=== PATIENT | male | born 1975 | race Caucasian/White ===

== ENCOUNTER 2023-05-21 09:14 | Day surgery (SDC) | payer OTHER, SELFPAY ==
--- NOTE | 2023-05-19 13:36 | HO.ANESPROP2 ---
Documented by User: Venice Mejia NP 05/19/23 13:41 HPI - Anesthesia Eval Consult details Narrative: 47yo M for Colonoscopy [facility] Past Medical History Medical History (Updated 05/21/23 @ 09:59 by Madisyn Herr RN) Acute Crohn's disease Anxiety B12 deficiency Back pain Crohn's disease GERD (gastroesophageal reflux disease) Hx of atrial fibrillation without current medication Hx of deep venous thrombosis LUCIANA (iron deficiency anemia) Insomnia Low testosterone Vitamin D deficiency Surgical History Surgical History (Updated 05/21/23 @ 10:00 by Madisyn Herr RN) History of bowel resection (~2019) History of incisional hernia repair (~2020) Hx of appendectomy (~2004) Hx of colonoscopy (~2019) Hx of knee surgery (~2010) Social History Social History Patient Tobacco Use Status: Never used Tobacco Use of substances other than those prescribed or required for medical reasons: No Advance Directives: No Advance Directives Information Provided: Yes Meds Allergies Allergy/AdvReac Type Severity Reaction Status Date / Time No Known Allergies Allergy Verified 05/19/23 13:39 Home Medications Medication Instructions Recorded Confirmed Last Taken Type cyanocobalamin (vitamin B-12) 1,000 mcg IM QMONTH 05/20/23 Unknown History 1,000 mcg/mL injection solution lorazepam 0.5 mg tablet 0.5 mg PO BID PRN anxiety 05/20/23 Unknown History testosterone 05/20/23 05/20/23 Unknown History tizanidine 4 mg tablet 4 mg PO TID 05/20/23 05/20/23 Unknown History Exam Exam Date and Time: May 19, 2023 1336 Assessment and Plan Assessment Anesthesia Assessment: Chart Reviewed Documented by User: Cassi Schuster MD 05/21/23 10:03 [facility] Past Medical History Medical History (Updated 05/21/23 @ 09:59 by Madisyn Herr RN) Acute Crohn's disease Anxiety B12 deficiency Back pain Crohn's disease GERD (gastroesophageal reflux disease) Hx of atrial fibrillation without current medication Hx of deep venous thrombosis LUCIANA (iron deficiency anemia) Insomnia Low testosterone Vitamin D deficiency Family History Family history of problems with anesthesia: No Surgical History Surgical History (Updated 05/21/23 @ 10:00 by Madisyn Herr RN) History of bowel resection (~2019) History of incisional hernia repair (~2020) Hx of appendectomy (~2004) Hx of colonoscopy (~2019) Hx of knee surgery (~2010) History of Problems with Anesthesia: No Social History Social History Patient Tobacco Use Status: Never used Tobacco Use of substances other than those prescribed or required for medical reasons: No Advance Directives: No Advance Directives Information Provided: Yes Meds Allergies Allergy/AdvReac Type Severity Reaction Status Date / Time No Known Allergies Allergy Verified 05/19/23 13:39 Home Medications Medication Instructions Recorded Confirmed Last Taken Type cyanocobalamin (vitamin B-12) 1,000 mcg IM QMONTH 05/20/23 Unknown History 1,000 mcg/mL injection solution lorazepam 0.5 mg tablet 0.5 mg PO BID PRN anxiety 05/20/23 Unknown History testosterone 05/20/23 05/20/23 Unknown History tizanidine 4 mg tablet 4 mg PO TID 05/20/23 05/20/23 Unknown History Exam Airway Mallampati Class: II TM Dist: >3cm Neck ROM: Full Heart: rrr Lungs: cta Assessment and Plan Assessment Anesthesia Assessment: Anesthesia Plan Discussed Final Anesthetic Review Family History of Problems with Anesthesia: No History of Problems with Anesthesia: No NPO: Yes ASA Class: II Final Preanesthetic Review: No Changes in Pt Med Stat, Meds/Allgs Chart Reviewed and Consent Obtained/Reviewed Patient Risk: Intermediate Procedure Risk: Intermediate Anesthetic Plan Anesthetic Plan: MAC: Disposition: Standard PACU
[2023-05-21 09:34] VITALS: BMI 31.2
[2023-05-21 09:38] VITALS: BP 129/90; PULSE 82; RESP 16; TEMP 36.4; O2SAT 96
[2023-05-21] MEDS: Lactated Ringers 1,000 ML 100 ML IVCONT (09:58)
--- NOTE | 2023-05-21 10:58 | P.HPSUR_ITS ---
Pre-Procedural Eval Section A Date of Service: 05/21/23 Section B Chief Complaint: Crohn's disease of small intestine without complic Details of Present Illness: see H&P no changes Relevant Family History (Specify if Yes): No Relevant Social History: None Present Medications: see Short Stay Collaborative assessment Medical History: No relevant PMH History of Previous Operations: No relevant previous surgery Allergies: Allergies Allergy/AdvReac Type Severity Reaction Status Date / Time No Known Allergies Allergy Verified 05/19/23 13:39 Review of Systems Sugical H&P ROS: Negative: Constitution, Cardiovascular, Respiratory, Neurol ogical, Psychiatric, Hem-Onc, Allergic/Immunologic, Gastrointestinal, Genitourinary, Musculoskeletal, Integumentary, Endocrine and Eyes/Ears/Nose/Throat Exam Surgical H&P Exam: Normal: HEENT, Normal: Heart, Normal: Lungs, Normal: Extremities, Normal: Abdomen, Normal: Skin and Normal: Neurological Plan Diagnosis/Plan: Unchanged I have reviewed the history and physical and performed a pertinent physical examination on my patient. No changes have occurred unless specified. Time Spent With Patient Time: Total time managing care of this patient today ____ minutes.
--- NOTE | 2023-05-21 11:51 | PM.OP ---
Brief Operative Note Date of Service: 05/21/23 Pre-op diagnosis: crohns Post-op diagnosis: same Procedure: colonoscopy Surgeon: Diallo Hemphill Anesthesia: MAC Was an Paint Trimmer Pipe Bowls used for this Procedure?: No Estimated blood loss (mL): 2 Condition: stable Disposition: PACU
[2023-05-21 11:53] VITALS: BP 137/69; PULSE 85; RESP 14; TEMP 36.2; O2SAT 99
[2023-05-21 12:08] VITALS: BP 110/87; PULSE 70; RESP 16; TEMP 36.4; O2SAT 96
--- NOTE | 2023-05-21 13:30 | OP_ITS ---
DATE OF SERVICE: 05/21/2023 SURGEON: Diallo Hemphill MD INDICATIONS: Crohn disease of the small intestine. PREOPERATIVE DIAGNOSIS: POSTOPERATIVE DIAGNOSIS: PROCEDURE PERFORMED: Colonoscopy to the cecum with biopsy. ESTIMATED BLOOD LOSS: COMPLICATIONS: ANESTHESIA: Monitored anesthesia care. ASSISTANTS: SPECIMENS: DESCRIPTION OF PROCEDURE: History and physical performed. The risks and benefits of the procedure were explained to the patient. Informed consent was obtained. The patient was placed in the left lateral decubitus position. A digital rectal exam was performed and was found to be normal. The Olympus pediatric video colonoscope was introduced into the rectum and advanced to the cecum. The cecum was identified by transillumination, palpation, and identification of ileocecal valve. Examination was performed. The scope was removed. He tolerated the procedure well and was returned to the recovery area in stable condition. FINDINGS: The scope could not be advanced into the terminal ileum due to looping in the sigmoid. The visualized colonic mucosa was normal. There was no evidence of Crohn disease involving the colon. There was a small less than 5 mm polyp in the cecum, which was removed with a biopsy forceps. No other polyps were identified. Biopsies were obtained from throughout the colon. Retroflexed examination showed some small internal hemorrhoids. IMPRESSION: Colon polyp, Crohn disease. RECOMMENDATION: Follow up the biopsy results. MD MANASA Bermudez/KATERYNA / [id number]
== END 2023-05-21 12:30 | disposition home or self-care (01) ==
PROVIDERS: PCP Internal Medicine; Visit Provider Internal Medicine Gastroenterology
PROC: 0DJD8ZZ Inspection of Lower Intestinal Tract, Via Natural or Artificial Opening Endoscopic (ICD-10-PCS; CPT 45378; principal; 2023-05-21 10:30)
DX: Z12.11 Encounter for screening for malignant neoplasm of colon (principal); D12.0 Benign neoplasm of cecum; K50.90 Crohn's disease, unspecified, without complications; K21.9 Gastro-esophageal reflux disease without esophagitis; I48.0 Paroxysmal atrial fibrillation; D50.9 Iron deficiency anemia, unspecified; E53.8 Deficiency of other specified B group vitamins; E55.9 Vitamin D deficiency, unspecified; Z86.718 Personal history of other venous thrombosis and embolism; Z79.899 Other long term (current) drug therapy
CPT/HCPCS: 45380; 88305